=== PATIENT | female | born 1965 | race Asian ===

== ENCOUNTER 2025-01-08 02:28 | Day surgery (SDC) | payer OTHER, SELFPAY ==
--- NOTE | 2025-01-05 16:36 | SUR.PREOP ---
[facility] has started construction of its new state of the art ER which will open Spring 2026. With this, we anticipate parking may be a challenge for some our surgical patients and families. Parking spaces are limited but are available for all Surgical, obstetrics, and ER patients sharing this lot. If you arrive and find you are having a hard time finding a parking space, please note that we understand the challenges, please drive around the hospital and park near Hospital Entrance [address]. When you enter this entrance, you can ask a volunteer to direct or take you back to the surgical waiting area to check in. We appreciate everyone?s understanding of these expected challenges while we build for your future. Report to the Outpatient Waiting Room, entrance under the green pavilion located off [address], at time _10am__ on date _01/08/25__. Planned Procedure Time: __1200PM__.? Time changes happen often and if your time is changed the preop area will call you the afternoon before. - You and your visitor will be asked to self-screen and do not enter if you have any COVID symptoms. Please call surgeon if you need to reschedule. - A mask is optional within the hospital at this time. Patients may have clear liquids (water, carbonated beverages, clear teas, apple juice) until 3 hours prior to surgery with a maximum of 20 ounces. - No food from midnight until time of surgery and no smoking, or chewing tobacco (or any form of nicotine). No chewing gum, candy or mints. Take only the following medications with a SIP of water on the morning of surgery: ___Levothyroxine DO NOT STOP ANY OF YOUR OTHER PRESCRIPTION MEDICATIONS PRIOR TO SURGERY EXCEPT THE FOLLOWING Hold all vitamins and supplements for 3 days per anesthesiologist. Medications to discontinue per physician ____n/a Date to take last dose_Immediately Stop any further vitamins until surgery.__ Please no make-up, nail guinean, hairspray, perfume, deodorant, or body powder the day of surgery.? No jewelry (including any body piercings) or valuables the day of surgery, leave them at home.? Please take a shower or bath the night before, or the morning of, surgery with an antibacterial soap.? Wear comfortable, loose fitting clothing.? - Jewelry must be removed prior to entering the operating room.? Rings and piercings that are not removed may be cut off. - The hospital will not accept responsibility for valuables.? - Please leave all valuables, including medications, at home the day of surgery. If you are going home after surgery, a licensed winch driver must drive you home.? - NO public transportation without another adult if you receive anesthesia. - We recommend that an adult stay with you for 24 hours following discharge. - We also recommend that you do not drive, make important decision, drink alcoholic beverages, or take any drugs that were not prescribed by your health care provider for at least 24 hours after your discharge time. Follow any additional instructions given to you from your surgeon. Telephone instructions given to __Malathi___and asked if any additional questions and then verbalized understanding. Patient advised to call surgeon office or pre surgery nurse liaison [phone] if any additional questions.
[2025-01-05 16:41] VITALS: BMI 28.3
--- OUTSIDE RECORDS SUMMARY | 2025-01-08 02:31 | XMS_ITS | Data Portability ---
Author Organization [facility] Address [address] [place] [address] Care Team Providers Care Centrifugal Spinner Name Role Phone NASIR PALMA Primary Care Provider Assessment No assessment recorded. Plan of Treatment Reminders Order Date Submit Date Provider Last Modified By Organization Details Last Modified Time Details Appointments SURG Hysterosc opy 2024 12:00P Jerry QUINONES MD Not available Not available Not available SURG POST OP 2024 10:15A Jerry QUINONES MD Not available Not available Not available Lab hormone panel, serum or plasma [address] (Lab), [address], [place], [address], 12/30/2024 18:33:31 TSH, serum or plasma [address] (Lab), [address], [place], [address], 12/30/2024 18:33:31 CBC w/ auto diff [address] (Lab), [address] [place], [address], 12/30/2024 18:33:31 progester one, serum [address] (Lab), [address], [place], [address], 12/30/2024 18:33:31 prolactin , serum [address] (Lab), [address] [facility], [place], [address], 12/30/2024 18:33:31 testoster one free/test osterone total, ratio, serum [address] (Lab), [address] [facility], [place], [address], 12/30/2024 18:33:31 dhea-sulf ate, serum [address] (Lab), [address] [facility], [place], [address], 12/30/2024 18:33:31 CMP, serum or plasma [address] (Lab), [address] [facility], [place], [address], 12/30/2024 18:33:32 25-hydrox yvitamin D2 + 25-hydrox yvitamin D3, QN, serum or plasma [address] (Lab), [address] [facility], [place], [address], 12/30/2024 18:33:32 vitamin B12, serum [address] (Lab), [address] [facility], [place], [address], 12/30/2024 18:33:32 Referral None recorded. Procedures None recorded. Surgeries dilation and curettage with hysterosc opy (SURG) 2024 025 [id number] [facility], [address] [address], [place], [address], 01/01/2025 13:25:04 Imaging US, pelvis 2024 025 [email or web address] [place], [address], [place], [address], 12/25/2024 22:05:52 US, transvagi nal 2024 025 [email or web address], [address], [place], [address], 12/25/2024 22:05:52 Medication Orders None recorded. Patient TargetsNo targets recorded. Patient InstructionsNo instructions recorded. Reason for Referral None Reported. Results Created Date Observation Date Name Description Value Unit Range Abnormal Flag Note LastModifiedBy Organization Detail LastModifiedTime 12/24/1912/23/2024 CBC W/DIF F WBC 7.1 10'3/ uL 3.5-10 .5 Not Available [facility] (Lab) [address] [facility], [place], [address], 12/30/2024 18:44:31 12/24/19 25 12/23/2024 CBC W/DIF F RBC 4.60 10'6/ uL (based on docume nted legal sex) 3.80-5 .20 Not Available [facility] (Lab) [address], [place], [address], 12/30/2024 18:44:31 12/24/19 25 12/23/2024 CBC W/DIF F HGB 12.8 g/dL (based on docume nted legal sex) 11.6-1 5.4 Not Available [facility] (Lab) [address] , [place], [address], 12/30/2024 18:44:31 12/24/19 25 12/23/2024 CBC W/DIF F HCT 40.6 % (based on docume nted legal sex) 34.0-4 5.0 Not Available [facility] (Lab) [address] , [place], [address], 12/30/2024 18:44:31 12/24/19 25 12/23/2024 CBC W/DIF F MCV 88.3 fL 80.0-9 9.0 Not Available [facility] (Lab) [address] [facility], [place], [address], 12/30/2024 18:44:31 12/24/19 25 12/23/2024 CBC W/DIF F MCH 27.8 pg 27.0-3 4.0 Not Available [facility] (Lab) [address] [facility], [place], [address], 12/30/2024 18:44:31 12/24/19 25 12/23/2024 CBC W/DIF F MCHC 31.5 g/dL 32.0-3 5.5 low Not Available [facility] (Lab) [address], [place], [address], 12/30/2024 18:44:31 12/24/19 25 12/23/2024 CBC W/DIF F RDW 12.8 % 11.0-1 5.0 Not Available [facility] (Lab) [address] [facility], [place], [address], 12/30/2024 18:44:31 12/24/19 25 12/23/2024 CBC W/DIF F plt 279 10'3/ uL 150-40 0 Not Available [facility] (Lab) [address] [facility], [place], [address], 12/30/2024 18:44:31 12/24/19 25 12/23/2024 CBC W/DIF F MPV 12.2 fL 8.8-12 .1 high Not Available [facility] (Lab) [address] [facility], [place], [address], 12/30/2024 18:44:31 12/24/19 25 12/23/2024 CBC W/DIF F NRBC's 0.0 % 0.0 Not Available [facility] (Lab) [address] [facility], [place], [address], 12/30/2024 18:44:31 12/24/19 25 12/23/2024 CBC W/DIF F absolute NRBCs 0.0 10'3/ uL no refere nce range establ ished Not Available [facility] (Lab) [address] [facility], [place], [address], 12/30/2024 18:44:31 12/24/19 25 12/23/2024 CBC W/DIF F neutrophils 53.2 % 34.0-7 3.0 Not Available [facility] (Lab) [address] [facility], [place], [address], 12/30/2024 18:44:31 12/24/19 25 12/23/2024 CBC W/DIF F lymphocytes 36.6 % 15.0-5 0.0 Not Available [facility] (Lab) [address] [facility], [place], [address], 12/30/2024 18:44:31 12/24/19 25 12/23/2024 CBC W/DIF F monocytes 6.1 % 1.0-15 .0 Not Available [facility] (Lab) [address] [facility], [place], [address], 12/30/2024 18:44:31 12/24/19 25 12/23/2024 CBC W/DIF F eosinophils 3.2 % 0.0-8. 0 Not Available [facility] (Lab) [address] [facility], [place], [address], 12/30/2024 18:44:31 12/24/19 25 12/23/2024 CBC W/DIF F basophils 0.8 % 0.0-2. 0 Not Available [facility] (Lab) [address] [facility], [place], [address], 12/30/2024 18:44:31 12/24/19 25 12/23/2024 CBC W/DIF F immature granulocytes 0.1 % no define d refere nce range Immat ure Granu locyt es (IG) repre sents autom ated enume ratio n of Metam yeloc ytes, Myelo cytes and Promy elocy wyatt when IG is < 5%. Blast s are not inclu ded in IG and repor gama separ ately if prese nt. Not Available [facility] (Lab) [address] [facility], [place], [address], 12/30/2024 18:44:31 12/24/19 25 12/23/2024 CBC W/DIF F absolute neutrophils 3.8 10'3/ uL 1.5-8. 0 Not Available [facility] (Lab) [address] [facility], [place], [address], 12/30/2024 18:44:31 12/24/19 25 12/23/2024 CBC W/DIF F absolute lymphocytes 2.6 10'3/ uL 1.0-4. 0 Not Available [facility] (Lab) [address] [facility], [place], [address], 12/30/2024 18:44:31 12/24/19 25 12/23/2024 CBC W/DIF F absolute monocytes 0.4 10'3/ uL 0.2-1. 0 Not Available [facility] (Lab) [address] [facility], [place], [address], 12/30/2024 18:44:31 12/24/19 25 12/23/2024 CBC W/DIF F absolute eosinophils 0.2 10'3/ uL 0.0-0. 6 Not Available [facility] (Lab) [address] [facility], [place], [address], 12/30/2024 18:44:31 12/24/19 25 12/23/2024 CBC W/DIF F absolute basophils 0.1 10'3/ uL 0.0-0. 3 Not Available [facility] (Lab) [address] [facility], [place], [address], 12/30/2024 18:44:31 12/24/19 25 12/23/2024 CBC W/DIF F absolute immature granulocytes 0.0 10'3/ uL 0.00-0 .10 Refer ence range s for nonbi nary/ inter sex or unspe cifie d gende r patie nts have not been estab lishe d. Plevera e refer to the marthao wing table for range s estab lishe d for cisge nder patie nts and evalu ate in the clini alla nick xt of the indiv idual patie nt: https ://la bhand book. nm.or g/gen derx Not Available [facility] (Lab) [address], [place], [address], 12/30/2024 18:44:31 12/24/19 25 12/23/2024 HEMOG LOBIN A1C hemoglobin A1C 6.4 % 4.0-5. 6 high The Ameri can [employer] wyatt [employer] iatio n recom mends that a prima ry goal of thera py shoul d be a HBA1C of < 7% and that physi cians shoul d reeva luate the treat ment regim en in patie nts with HBA1C value s consi stent ly > 8%. <5.7% Akilah l 5.7 - 6.4% Incre ased risk for diabe wyatt >=6.5 % Diagn ostic of diabe wyatt <7.0% Goal of thera py >8.0% Actio n sugge sted Not Available [facility] (Lab) [address], [place], [address], 12/30/2024 18:44:32 12/24/19 25 12/23/2024 DHEA SULFA TE DHEA-sulfate 103 ug/dL Femal e Range s Age(y ) Range (ug/d L) 10-15 34-28 0 15-20 65-36 8 20-25 148-4 07 25-35 99-34 0 35-45 61-33 7 45-55 35-25 6 55-65 19-20 5 65-75 9-246 > 75 12-15 4 Not Available [facility] (Lab) [address], [place], [address], 12/30/2024 18:44:32 12/24/19 25 12/23/2024 TSH, REFLE X FREE T4 TSH 1.34 uIU/m L 0.30-5 .33 Not Available [facility] (Lab) [address] [facility], [place], [address], 12/30/2024 18:44:32 12/24/19 25 12/23/2024 VITAM IN B12 vitamin B12 233 pg/mL 180-91 4 Akilah l Range : 180-9 14 pg/mL . Indet ermin ate Range : 145-1 80 pg/mL . Defic ient Range : <=145 pg/mL . Not Available [facility] (Lab) [address] [facility], [place], [address], 12/30/2024 18:44:33 12/24/19 25 12/23/2024 VITAM IN D, 25-OH (TOTA L D2/D3 ) vitamin D, 25-hydroxy, total 19.6 NG/mL 30.0-1 00.0 low Sugge stive of Defic iency : <20 ng/mL Sugge stive of Insuf ficie ncy: 20-29 ng/mL Sugge stive of Suffi cienc y: 30-10 0 ng/mL Sugge stive of Toxic ity: >150 ng/mL Not Available [facility] (Lab) [address] [facility], [place], [address], 12/30/2024 18:44:33 12/24/19 25 12/23/2024 CMP(C OMPRE HENSI VE METAB OLIC PANEL ) sodium 139 mmol/ L 133-14 6 Not Available [facility] (Lab) [address] [facility], [place], [address], 12/30/2024 18:44:33 12/24/19 25 12/23/2024 CMP(C OMPRE HENSI VE METAB OLIC PANEL ) potassium 4.3 mmol/ L 3.5-5. 1 Not Available [facility] (Lab) [address] [place], [address], 12/30/2024 18:44:33 12/24/19 25 12/23/2024 CMP(C OMPRE HENSI VE METAB OLIC PANEL ) chloride 103 mmol/ L 98-107 Not Available [facility] (Lab) [address] [facility], [place], [address], 12/30/2024 18:44:33 12/24/19 25 12/23/2024 CMP(C OMPRE HENSI VE METAB OLIC PANEL ) carbon dioxide 28 mmol/ L 21-31 Not Available [facility] (Lab) [address] [facility], [place], [address], 12/30/2024 18:44:33 12/24/19 25 12/23/2024 CMP(C OMPRE HENSI VE METAB OLIC PANEL ) anion gap 8 mmol/ L 4-13 Not Available [facility] (Lab) [address] [facility], [place], [address], 12/30/2024 18:44:33 12/24/19 25 12/23/2024 CMP(C OMPRE HENSI VE METAB OLIC PANEL ) blood urea nitrogen 18 mg/dL 7-25 Not Available [facility] (Lab) [address] [facility], [place], [address], 12/30/2024 18:44:33 12/24/19 25 12/23/2024 CMP(C OMPRE HENSI VE METAB OLIC PANEL ) creatinine 0.80 mg/dL 0.60-1 .30 Not Available [facility] (Lab) [address] [facility], [place], [address], 12/30/2024 18:44:33 12/24/19 25 12/23/2024 CMP(C OMPRE HENSI VE METAB OLIC PANEL ) egfrcr (CKD-epi 2020) 85 mL/mi n/1.7 3_m2 >=60 Not Available [facility] (Lab) [address] [facility], [place], [address], 12/30/2024 18:44:33 12/24/19 25 12/23/2024 CMP(C OMPRE HENSI VE METAB OLIC PANEL ) calcium 9.8 mg/dL 8.3-10 .5 Not Available [facility] (Lab) [address] [facility], [place], [address], 12/30/2024 18:44:33 12/24/19 25 12/23/2024 CMP(C OMPRE HENSI VE METAB OLIC PANEL ) glucose 103 mg/dL 70-100 high Not Available [facility] (Lab) [address] [facility], [place], [address], 12/30/2024 18:44:33 12/24/19 25 12/23/2024 CMP(C OMPRE HENSI VE METAB OLIC PANEL ) protein, total 7.3 g/dL 6.4-8. 3 Not Available [facility] (Lab) [address] [facility], [place], [address], 12/30/2024 18:44:33 12/24/19 25 12/23/2024 CMP(C OMPRE HENSI VE METAB OLIC PANEL ) albumin 4.6 g/dL 3.5-5. 0 Not Available [facility] (Lab) [address] [facility], [place], [address], 12/30/2024 18:44:33 12/24/19 25 12/23/2024 CMP(C OMPRE HENSI VE METAB OLIC PANEL ) ALT 15 units /L 9-43 Not Available [facility] (Lab) [address] [place], [address], 12/30/2024 18:44:33 12/24/19 25 12/23/2024 CMP(C OMPRE HENSI VE METAB OLIC PANEL ) alkaline phosphatase 99 units /L 34-104 Not Available [facility] (Lab) [address] [place], [address], 12/30/2024 18:44:33 12/24/19 25 12/23/2024 CMP(C OMPRE HENSI VE METAB OLIC PANEL ) AST 12 units /L 13-39 low Not Available [facility] (Lab) [address] [place], [address], 12/30/2024 18:44:33 12/24/19 25 12/23/2024 CMP(C OMPRE HENSI VE METAB OLIC PANEL ) bilirubin, total 0.8 mg/dL 0.2-1. 2 Not Available [facility] (Lab) [address] [facility], [place], [address], 12/30/2024 18:44:33 12/24/19 25 12/23/2024 PROLA CTIN prolactin, total 5.79 NG/mL 4.79-2 3.30 This assay was perfo rmed using [employer] ratio n reage nts and test kits. Value s obtai tonya with other assay metho ds or kits canno t be used inter waters eay . Not Available [facility] (Lab) [address] [facility], [place], [address], 12/30/2024 18:44:33 12/24/19 25 12/23/2024 PROGE STERO NE progesterone 0.06 NG/mL This assay was perfo rmed using [employer] ratio n reage nts and test kits. Value s obtai tonya with other assay metho ds or kits canno t be used inter waters eably . Femal e Proge stero ne Range s: Folli cular phase 0.06- 0.89 ng/mL Ovula tion phase 0.12- 12.00 ng/mL Lutea l phase 1.83- 23.90 ng/mL Postm enopa usal <0.05 -0.13 ng/mL Healt hy Pregn ant Women 1st Trime ster 11.0- 44.30 2nd Trime ster 25.40 -83.3 0 3rd Trime ster 58.70 -214. 00 Not Available [facility] (Lab) [address] [facility], [place], [address], 12/30/2024 18:44:33 12/24/19 25 12/23/2024 FSH, LH, ESTRA DIOL estradiol 13.7 pg/mL This assay was perfo rmed using [employer] ratio n reage nts and test kits. Value s obtai tonya with other assay metho ds or kits canno t be used inter [facility] . Femal e Estra diol Range s: Folli cular phase 12.4- 233 pg/mL Ovula tion phase 41.0- 398 pg/mL Lutea l phase 22.3- 341 pg/mL Postm enopa usal <5-13 8 pg/mL Healt hy Pregn ant Women 1st Trime ster 154-3 243 pg/mL 2nd Trime ster 1561- 23149 pg/mL 3rd Trime ster 8525- >3000 0 pg/mL Not Available [facility] (Lab) [address] [place], [address], 12/30/2024 18:44:34 12/24/19 25 12/23/2024 FSH, LH, ESTRA DIOL FSH 63.4 mIU/m L This assay was perfo rmed using [employer] ratio n reage nts and test kits. Value s obtai tonya with other assay metho ds or kits canno t be used inter [facility] . Femal es Folli cular : 3.5-1 2.5 mIU/m L Ovula tion: 4.7-2 1.5 mIU/m L Lutea l: 1.7-7 .7 mIU/m L Postm enopa use: 25.8- 134.8 mIU/m L Not Available [facility] (Lab) [address] [place], [address], 12/30/2024 18:44:34 12/24/19 25 12/23/2024 FSH, LH, ESTRA DIOL LH 25.6 mIU/m L This assay was perfo rmed using [employer] ratio n reage nts and test kits. Value s obtai tonya with other assay metho ds or kits canno t be used inter [facility] . Femal es Mid-F ollic ular: 2.4-1 2.6 mIU/m L Mid-C ycle: 14.0- 95.6 mIU/m L Mid-L uteal : 1.0-1 1.4 mIU/m L Postm enopa use: 7.7-5 8.5 mIU/m L Not Available [facility] (Lab) [address] [facility], [place], [address], 12/30/2024 18:44:34 12/24/19 25 12/23/2024 TESTO STERO NE, FREE( DIALY SIS) AND TOTAL (LC/M S/MS) testosterone , total 12 NG/dL 2-45 For addit ional infor radha thomas e refer to http: //[facility] kiara samuels.que stdia gnost ics.c om/fa q/ Total Testo stero neLCM SMSFA Q165 (This link is being provi ded for infor nanda quick/ educa aryan l purpo ses only. ) This test was devel oped and its saira tical perfo rmanc e michela cteri stics have been deter mined by [employer] allyson haley [employer] [place], [place]. It has not been clear ed or appro ambrose by the U.S. Food and Drug Admin istra tion. This assay has been valid ated pursu ant to the CLIA regul ation s and is used for clini alla purpo ses. Not Available [facility] (Lab) [address] [place], [address], 12/30/2024 18:44:34 12/24/19 25 12/23/2024 TESTO STERO NE, FREE( DIALY SIS) AND TOTAL (LC/M S/MS) testosterone , free 1.6 pg/mL 0.1-6. 4 This test was devel oped and its saira tical perfo rmanc e michela cteri stics have been deter mined by [employer] osthernandez haley [employer] [place], [place]. It has not been clear ed or appro ambrose by the U.S. Food and Drug Admin istra tion. This assay has been valid ated pursu ant to the CLIA regul ation s and is used for clini alla purpo ses. Perfo rming Organ izati on Infor nanda n: Site ID: [id number] Name: Adam Copeland tutpatrice Addre ss: [id number] [place], [place] Direc tor: Brynn Monreal MD PhD Not Available [facility] (Lab) [address], [place], [address], 12/30/2024 18:44:34 12/26/1912/25/2024 US, pelvi s No observ ation record ed. [email or web address], [place], [address], 01/01/2025 16:36:50 12/26/1912/25/2024 US, pelvi s No observ ation record ed. [facility] [address], [place], [address], 12/25/2024 15:25:20 12/26/1912/25/2024 US, trans vagin al No observ ation record ed. [facility] [address], [place], [address], 12/25/2024 15:25:29 Result Notes None recorded. Procedures Surgical History Date Name Laterality Status Provider Name and Address Organization Details Recorded Time Colonoscopy completed [facility] 12/23/2024 11:54:26 Imaging Results None recorded. Procedure Notes None recorded. Medical Equipment None Reported. Allergies No known drug allergies Medications Name Sig Start Date Stop Date Status Note LastModified by Organization Details LastModified Time famotidine 40 mg tablet Take 1 tablet every day by oral route. active Not Available Not Available No t Available levothyroxine 75 mcg tablet Take 1 tablet every day by oral route. active Not Available Not Available No t Available levothyroxine 12/23 completed Not Available Not Available Not Available famotidine 12/23 completed Not Available Not Available Not Available 12 Hour Antihistamine active Not Available Not Availabl e Not Available cholecalcifer ol (vitamin D3) 1,250 mcg (50,000 unit) capsule Take one tablet by mouth once weekly for 8 weeks 2024 active Not Available Not Available Not Tete gutiérrez Vitalsudha Date Recorded Body height Body mass index (BMI) Body weight Systolic And Diastolic Provider Name and Address Organization Details Last Updated DateTime 12/23/2024 163.83 cm 27.9 kg/m2 32513.46 g 139/84 mm[Hg] Amy Anthony [facility] 12/23/2024 11:45:28 Date Recorded Body height Body mass index (BMI) Body weight Systolic And Diastolic Provider Name and Address Organization Details Last Updated DateTime 01/01/2025 163.83 cm 28.1 kg/m2 02443.33 g 135/80 mm[Hg] Stephanie Benson [facility] 01/01/2025 11:00:39 Social History Question Answer Notes LastModified by Organizat ion Details LastModified Time Are You Blind Or Do You Have Difficulty Seeing? No [email or web address] Information not available 12/23/2024 What Is Your Level Of Caffeine Consumption? Moderate Information not available 12/23/2024 How Much Tobacco Do You Chew? None Information not available 12/23/2024 In The 14 Days Before Symptom Onset, Have You Had Close Contact With A Laboratory-confirme d COVID-19 While That Case Was Ill? No [email or web address] Information n ot available 12/23/2024 In The 14 Days Before Symptom Onset, Have You Had Close Contact With A Person Who Is Under Investigation For COVID-19 While That Person Was Ill? No [email or web address] Information not available 12/23/2024 Have You Been To An Area Known To Be High Risk For COVID-19? No [email or web address] Information not available 12/23/2024 Are You Deaf Or Do You Have Serious Difficulty Hearing? No [email or web address] Information not available 12/23/2024 What Type Of Diet Are You Following? DIABETIC [email or web address] Information n ot available 12/23/2024 What Is The Highest Grade Or Level Of School You Have Completed Or The Highest Degree You Have Received? [id number] [email or web address] Information not available 12/23/2024 Are There Any Guns Present In Your Home? No [email or web address] Information not available 12/23/2024 Do You Use Protection During Sex? No Information not available 12/23/2024 Do You Use Your Seat Belt Or Car Seat Routinely? Yes [email or web address] Information not available 12/23/2024 Are You Sexually Active? Yes [email or web address] Information not available 12/23/2024 Do You Have Smoke And Carbon Monoxide Detectors In Your Home? Yes [email or web address] Information not available 12/23/2024 How Much Tobacco Do You Smoke? No [email or web address] Information not available 12/23/2024 Do You Use Sunscreen Routinely? Yes [email or web address] Information not available 12/23/2024 Have You Used IV Drugs? No [email or web address] Information not available 12/23/2024 Do You Have Difficulty Walking Or Climbing Stairs? No [email or web address] Information not available 12/23/2024 Sex: Unknown Functional Status Question Answer Note LastModified by Organizat ion Details LastModified Time Do you use any illicit or recreational drugs? No [email or web address] Information not available 12/23/2024 What is your level of alcohol consumption? None [email or web address] Information not available 12/23/2024 Are you currently employed? Yes [email or web address] Information not available 12/23/2024 Are you able to walk independently without assistance or assistive devices? YESWOREST [email or web address] Information not available 12/23/2024 Are you able to care for yourself independently? 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 No Information not available 12/23/2024 What is your exercise level? None [email or web address] Information not available 12/23/2024 Mental Status Question Answer Note LastModified by Organization D etails LastModified Time Do you feel stressed (tense, restless, nervous, or anxious, or unable to sleep at night)? [id number] Information not available 12/23/2024 Family History Relationship Description Onset Age of this Age Resolved Age Notes LastModified by Organization Details LastModified Time Mother Diabetes mellitus [email or web address] Not available 2024 11:37:06 Father Diabetes mellitus [email or web address] Not available 2024 11:37:06 Medical History Condition Response Allergies (Food, seasonal, environmental ) N Other N Drug/Latex Allergies/Reactions N Blood Transfusion N Breast Cancer N Dermatologic Disorders N Lung Disease N Defects or Inherited Disease N Breast Problem N Gestational Diabetes N Hematologic disorders N Anesthesia Complications N History of STI N Deep Vein Thrombosis N Polycystic ovary syndrome N Anxiety Disorder N Autoimmune disease N Arthritis N Polyps N Infertility N Acid Reflux (GERD) Y History of abnormal pap N Cancer N Varicosities N Stroke N Neurologic/Epilepsy N Endometriosis N High Cholesterol N Fibromyalgia N Headaches N Kidney Disease N Heart Problems N Thyroid Problems N Kidney or Bladder Problems N GI Problems N Eating Disorder N Anemia N Art (IVF or FET) N Psychiatric Illness N Ovarian Cancer N Diabetes N Pulmonary (TB, Asthma) N Hepatitis/Liver Disease N No Past Medical History N Eczema N Urinary Tract Infection N Abuse/Domestic Violence N Asthma N Trauma/Violence N Depression/ depression N Heart Disease N Pre-Eclampsia N Hypertension N Osteoporosis N Thrombophilias N Gynecological History Statement/Question Response Flow Light Date of Last Mammogram Date of LMP 11/29/2024 Was last menstrual period normal N STIs/STDs N Duration of Flow (days) 25 Current Control Method None Age at First Child 24 Are cycles usually normal N Date of Last Colonoscopy Most Recent Bone Density Sexually Active? Y Menses Monthly N Date of DEXA bone scan Age of first menstrual cycle 13 Date of Last Pap Smear Sexual Problems? Y LMP Definite Obstetrics History GPAL:G 4 P 3 0 1 3 Type Value Full Term 3 Spontaneous 1 Living 3 Total 4 Past Encounters Encounter ID Performer Location Encounter Start Date Encounter Closed Date Diagnosis/Indication Diagnosis SNOMED-CT Code Diagnosis ICD10 Code Diagnosis IMO Codes Diagnosis Note [id number] JARED POWELL, SERA [place] [address] [address] 12/23/2024 11:33:19 12/23/2024 13:36:56 Abnormal uterine bleeding [id number] 9100 N93.9 [id number] The patient and I discussed the various causes of abnormal uterine bleeding, including polyps, fibroids, hyperplasi a, atypia, anovulatio n, hormonal changes, etc.We reviewed the typical evaluation with labs, pelvic US and possible endometria l biopsy.Mayuri efly discussed the options available for treatment (depending on the results of evaluation ). EMB from 07/03/24 at [facility] - benignPelv ic ultrasound and labs ordered with subsequent office f/u scheduled Fatigue [id number] R53.83 [id number] Donovan Quinones MD [place] [address] [address] 12/25/2024 13:51:16 12/25/2024 14:50:03 Abnormal uterine bleeding [id number] 9100 N93.9 [id number] Donovan Quinones MD [place] [address] [address] 01/01/2025 10:52:40 01/01/2025 12:18:57 Postmenopausal bleeding [id number] N95.0 [id number] this patient is 59-year-ol d female with postmenopa usal bleeding and thickened endometriu m. We have agreed to perform hysterosco py D&C. She understand s risks, benefits, and alternativ es. She has completed the informed consent process and is ready to proceed Health Concerns Section Related Observation LastModified by Organization Detai ls LastModified Time None Recorded Concern Status LastModified by Organization Details LastModified Time None Recorded Advance Directives Directive None Recorded Payers Insurance Date Sequence Insurance Name Policy Number Policy Wang Covered Member ID Wang Member ID Guarantor Name 01/07/2025 1 [employer] (POS II) [id number] Malathi Lay [id number] Malathi Lay Notes Date Note Type Note Provider Name and Address Organization Details Recorded Time 12/23/2024 text/html 59 y/o artem-menopausal female presents with c/o irregular bleeding, bloating, abdominal pain, and fatigue.Patient states that over the past 3 years, she has had infrequent menstruation, and has went 11 months as her longest without menstruation. Patient states that she has had more intermittent light spotting this year. Patient states that she was evaluated in June at [facility] OBGYN clinic and had endometrial biopsy completed. Patient states that she never completed the pelvic ultrasound that was ordered.Patient states that her bleeding started again on 11/29 and has lasted 15 days with light flow. Patient reports cramping and bloating. Denies vaginal sx or urinary sx. Patient reports hx of constipation. JARED POWELL NP [address], [place], [address], [facility] 12/23/2024 13:36:24 01/01/2025 text/html this patient is a 59-year-old female with a thickened endometrium and postmenopausal bleeding. She has some vascularity of the thickened endometrium. We discussed the findings on ultrasound. We discussed treatment options. We discussed ruling out endometrial cancer. We agreed to move forward with hysteroscopy D and C. The patient understands the procedure. The procedure was described to the patient in great detail. the patient also understands the risks. The risks were also explained in detail. She understands that injuries May occur during surgery. She understands these injuries can result in hospitalization, more surgery, and severe illness. She understands there is risk of hemorrhage and infection. Donovan Quinones MD [address], [place], [address], [facility] 01/01/2025 12:18:31 OBGyn Episode Ob Episode Information Episode Created Date Number of Fetuses Patient Bloodtype Patient rh Status Prepregnancy Weight lbs Domestic Partner Domestic Partner Phone Father Name Network Strategist Status 12/24/19 25 1 CLOSED Fetus Data First Name Last Name Admitted to NICU Weight (g) Sex Living Outcome Pediatric Complications Fetus ID Race Codes Race Delivery Type 3628.73 6 F Full Term [id number] Vaginal Delivery Alejandro Calculation Initial Alejandro Date Initial Exam Date Initial Exam Provider Initial Ultrasound Date Last Menstrual Period Date Ultra Sound Weeks Gestation 0 Eighteen To Twenty Week Alejandro Update Ultra Sound Date Fundal Height At Umbil Quickening Date Ultra Sound Latest Weeks Gestation Final Alejandro Confirmed By Final Alejandro Confirmed Date Final Alejandro Date Ultra Sound Latest Days Gestation 0 0 Menstrual History Last Menstrual Date Menses Monthly On Bcp Conception Prior Menses Frequency Hcg Plus Date Menarche Onset Age Delivery Information Delivery Date Delivery Type Labor Anesthesia Weeks Gestation Incision Type Labor Labor Length Hrs Delivered By Post Complications Tubal Sterilization Discharge Date Comments 3 40 Discharge Information Feeding Method Contraceptive Method Maternal HG B and HCT Levels Ob Episode Information Episode Created Date Number of Fetuses Patient Bloodtype Patient rh Status Prepregnancy Weight lbs Domestic Partner Domestic Partner Phone Father Name Network Strategist Status 12/24/19 1 CLOSED Fetus Data First Name Last Name Admitted to NICU Weight (g) Sex Living Outcome Pediatric Complications Fetus ID Race Codes Race Delivery Type 3628.73 6 M Full Term [id number] Vaginal Delivery Alejandro Calculation Initial Alejandro Date Initial Exam Date Initial Exam Provider Initial Ultrasound Date Last Menstrual Period Date Ultra Sound Weeks Gestation 0 Eighteen To Twenty Week Alejandro Update Ultra Sound Date Fundal Height At Umbil Quickening Date Ultra Sound Latest Weeks Gestation Final Alejandro Confirmed By Final Alejandro Confirmed Date Final Alejandro Date Ultra Sound Latest Days Gestation 0 0 Menstrual History Last Menstrual Date Menses Monthly On Bcp Conception Prior Menses Frequency Hcg Plus Date Menarche Onset Age Delivery Information Delivery Date Delivery Type Labor Anesthesia Weeks Gestation Incision Type Labor Labor Length Hrs Delivered By Post Complications Tubal Sterilization Discharge Date Comments 2 40 Discharge Information Feeding Method Contraceptive Method Maternal HG B and HCT Levels Ob Episode Information Episode Created Date Number of Fetuses Patient Bloodtype Patient rh Status Prepregnancy Weight lbs Domestic Partner Domestic Partner Phone Father Name Network Strategist Status 12/24/19 1 CLOSED Fetus Data First Name Last Name Admitted to NICU Weight (g) Sex Living Outcome Pediatric Complications Fetus ID Race Codes Race Delivery Type 3175.14 4 F Full Term [id number] Vaginal Delivery Alejandro Calculation Initial Alejandro Date Initial Exam Date Initial Exam Provider Initial Ultrasound Date Last Menstrual Period Date Ultra Sound Weeks Gestation 0 Eighteen To Twenty Week Alejandro Update Ultra Sound Date Fundal Height At Umbil Quickening Date Ultra Sound Latest Weeks Gestation Final Alejandro Confirmed By Final Alejandro Confirmed Date Final Alejandro Date Ultra Sound Latest Days Gestation 0 0 Menstrual History Last Menstrual Date Menses Monthly On Bcp Conception Prior Menses Frequency Hcg Plus Date Menarche Onset Age Delivery Information Delivery Date Delivery Type Labor Anesthesia Weeks Gestation Incision Type Labor Labor Length Hrs Delivered By Post Complications Tubal Sterilization Discharge Date Comments 4 40 Discharge Information Feeding Method Contraceptive Method Maternal HG B and HCT Levels Ob Episode Information Episode Created Date Number of Fetuses Patient Bloodtype Patient rh Status Prepregnancy Weight lbs Domestic Partner Domestic Partner Phone Father Name Network Strategist Status 12/24/19 1 CLOSED Fetus Data First Name Last Name Admitted to NICU Weight (g) Sex Living Outcome Pediatric Complications Fetus ID Race Codes Race Delivery Type , Spontane ous [id number] Alejandro Calculation Initial Alejandro Date Initial Exam Date Initial Exam Provider Initial Ultrasound Date Last Menstrual Period Date Ultra Sound Weeks Gestation 0 Eighteen To Twenty Week Alejandro Update Ultra Sound Date Fundal Height At Umbil Quickening Date Ultra Sound Latest Weeks Gestation Final Alejandro Confirmed By Final Alejandro Confirmed Date Final Alejandro Date Ultra Sound Latest Days Gestation 0 0 Menstrual History Last Menstrual Date Menses Monthly On Bcp Conception Prior Menses Frequency Hcg Plus Date Menarche Onset Age Delivery Information Delivery Date Delivery Type Labor Anesthesia Weeks Gestation Incision Type Labor Labor Length Hrs Delivered By Post Complications Tubal Sterilization Discharge Date Comments 2 Discharge Information Feeding Method Contraceptive Method Maternal HG B and HCT Levels
--- OUTSIDE RECORDS SUMMARY | 2025-01-08 02:31 | XMS_ITS | Clinical Summary ---
Author Organization [facility] Address [address] [place] [address] Care Team Providers Care Rippler Name Role Phone Radha Su [employer]AL INSTALLER Primary Care Provider [phone] Allergies Active Allergy Reactions Criticality Noted Date Comments Gluten Rash Medium 05/01/2017 Wheat Rash,Shortness of breath,Swelling High Medications ibuprofen (ADVIL,MOTRIN) 600 mg tabletIndicatio ns:Pain Take 1 tablet (600 mg total) by mouth every 6 (six) hours as needed for pain 60 tablet 07/04/19 25 Active famotidine (PEPCID) 40 mg tabletIndicatio ns:Gastroesopha geal reflux disease, unspecified whether esophagitis present Take 1 tablet (40 mg total) by mouth daily 90 tablet 1 07/30/19 25 Active cetirizine (ZyrTEC) 10 mg chewable tabletIndicatio ns:Postmenopaus al bleeding Take 1 tablet (10 mg total) by mouth daily as needed for allergies 90 tablet 1 09/25/19 25 Active levothyroxine (SYNTHROID) 75 mcg tabletIndicatio ns:Postmenopaus al bleeding TAKE 1 TABLET BY MOUTH EVERY MORNING BEFORE BREAKFAST 90 tablet 1 12/27/19 25 Active levothyroxine (SYNTHROID) 75 mcg tabletIndicatio ns:Postmenopaus al bleeding Take 1 tablet (75 mcg total) by mouth commonwealth attorney before breakfast 90 tablet 1 09/25/19 25 025 Discontinued Active Problems Problem Noted Date Diagnosed Date Screening for cholesterol level 07/30/2024 Screening for diabetes mellitus 07/30/2024 Fatigue 07/30/2024 Overview (07/30/2024): -for the past three months her entire body is in pain -she did start working longer hours on her feet -reports pain in her muscles, not joint pain -right arm and shoulder is worse than left, improves with wearing a brace -pain in neck and low back -woke up in pain this morning but improved with a hot shower -might take Ibuprofen -feels tired during the day -naps for three hours in the afternoon -low energy so she started taking vit d and b Update labs, start PT Postmenopausal bleeding 07/03/2024 Overview (07/30/2024): -follows with chain saw operator -scheduled for US later this month Right shoulder pain 07/03/2024 Overview (07/03/2024): 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 Persistent despite rest, stretching, topical agents Plan - referral to physical therapy placed Gastroesophageal reflux disease 07/30/2021 Overview (07/30/2024): -well controlled with pepcid -reflux is worse when she is angry or anxious Hypothyroidism 03/19/2004 Overview (07/30/2024): -levothyroxine 75mcg daily Update TSH. Medical History Medical History Date Comments Thyroid disease 2003 GERD (gastroesophageal reflux disease) Family History Medical History Relation Name Comments Diabetes Father Diabetes Mother Relation Name Status Comments Father Alive Mother Alive Social History Tobacco Use Types Packs/Day Years Used Date Smoking Tobacco: Never Passive Smoke Exposure: Never Smokeless Tobacco: Never Tobacco Cessation:Counseling Given: Not Answered Hunger Vital Sign Answer Date Recorded Within the past 12 months, y ou worried that your food would run out before you got the money to buy more. Never true 07/04/19 25 Within the past 12 months, t he food you bought just didn't last and you didn't have money to get more. Never true 07/03/2024 Comments No Sex and Gender Information Value Date Recorded Sex Assigned at Not on file Legal Sex Female 11:29 AM CDT Gender Identity Female 06/30/2024 7:34 PM CDT Sexual Orientation Not on file Obstetrics History Para Term AB IAB SAB Ectopic Multiple Livin g Live Births 4 3 3 0 1 3 Date Outcome GA Total Labor Labor/2nd/3rd Weight Sex Type Anes PTL Mounika A1 A5 Name Clin Term Term Term AB Comments Term x3, 1 miscarriage Last Filed Vital Signs Vital Sign Reading Time Taken Comments Blood Pressure 122/77 07/29/2024 10:24 AM CDT Pulse 80 07/29/2024 10:24 AM CDT Temperature 36.8 C (98.2 F) 07/29/2024 10:24 AM CDT Respiratory Rate - - Oxygen Saturation 98% 07/29/2024 10:24 AM CDT Inhaled Oxygen Concentration - - Weight 77.1 kg (170 lb) 07/29/2024 10:24 AM CDT Height 162.6 cm (5' 4) 07/29/2024 10:24 AM CDT Body Mass Index 29.18 07/29/2024 10:24 AM CDT Plan of Treatment Health Maintenance Due Date Last Done Comments Breast Cancer Screening-Mammogram 1965 Cervical Cancer Screening 1965 Colon Cancer Screening-Colonoscopy 1965 Depression Screening 1965 Hepatitis C Screening 1965 DTaP/Tdap/Td Vaccine (1 - Tdap) 1976 Hepatitis B Screening 12/20/1983 Regular Well Visit/Exam 18-64 12/20/1983 Zoster Vaccine (2 of 2) 10/23/2023 08/28/2023 Covid-19 Vaccine (4 - 2024-2 6 season) 2024 04/05/2021, 08/12/2020, 06/17/2020 Influenza Vaccine (#1) 2024 , 01/07/2020 Pneumococcal vaccine <65 Aged Out No longer eligible based on patient's age to complete this topic Insurance [facility] Care Teams Rippler Relationship Specialty Start Date End Date Radha Su NP [address] [facility] [address] [place] [address] PCP - General Nurse Practitioner 07/29/24
--- NOTE | 2025-01-08 10:55 | WPDANESEPPF ---
Anes - Initial Pre Proc Eval Procedure: Operation Date: 01/08/25 12:00 Proposed Procedures p Hysteroscopy Dilation and Curettage - Donovan Quinones MD Date/Time: 01/08/25 10:55 Surgeon: Donovan Quinones MD Pre Op Diagnosis: post menopausal bleeding Patient Data Age: 59 Gender: F Height: 1.63 m Weight: 75 kg Allergies Allergy/AdvReac Type Severity Reaction Status Date / Time No Known Allergies Allergy Verified 01/05/25 16:38 Home Medications ?Medication ?Instructions ?Recorded ?Confirmed ?Type cetirizine 10 mg tablet (24Hour 10 mg PO DAILY PRN allergies 01/05/25 01/05/25 History Allergy) famotidine 40 mg tablet 40 mg PO DAILY 01/05/25 01/05/25 History levothyroxine 75 mcg tablet 75 mcg PO DAILY 01/05/25 01/05/25 History magnesium 200 mg tablet 200 mg PO DAILY 01/05/25 01/05/25 History multivitamin (Daily Multi-Vitamin 1 tablet PO DAILY 01/05/25 01/05/25 History tablet) Patient hx anesthesia problems: none Family hx anesthesia problems: none Results Review: All pre-operative results and documents have been reviewed as part of the pre-operative evaluation. PMFSH Past Medical History Medical History (Updated 01/08/25 @ 10:55 by Jonathan Woods MD) Hypothyroidism Overweight Social History Social History Smoking status: Never smoker Living arrangements: with family Anes - Eval Final PreProcedure Day of Procedure 01/08/25 10:55 Patient weight: overweight Heart: regular rate and rhythm Lungs: clear to auscultation Airway: Mallampati scale class II Neurological: alert and oriented Last oral intake: >/= 8 hours ASA classification: II Emergent: no Anesthetic plan: proceed Anesthesia type and monitoring: general GIVS and standard monitoring Results Review: All pre-operative results and documents have been reviewed as part of the pre-operative evaluation. Informed Consent: The patient's anesthetic plan and its attendant risks and benefits were discussed with the patient/family/POA. Questions were solicited and answers provided to the satisfaction of the patient/family/POA.
[2025-01-08 11:02] VITALS: BP 148/87; PULSE 68; TEMP 36.3; O2SAT 99; BMI 28.8
[2025-01-08] MEDS: ACETAMINOPHEN 500 MG TABLET 1000 MG PO (11:10)
[2025-01-08] MEDS: LACTATED RINGERS 1,000 ML 30 ML IV CONT (11:10)
[2025-01-08 12:09] VITALS: BP 119/59; PULSE 66
--- NOTE | 2025-01-08 12:13 | WPDHPUPDATE1 ---
History and Physical Update Update Date/Time: 01/08/25 12:13 History and Physical has been reviewed, including an updated exam of the patient. There are NO changes in the patient's condition. Risks, benefits, and alternatives have been discussed and questions answered. Patient agrees to proceed with procedure.
--- NOTE | 2025-01-08 12:33 | S_PTH ---
PATIENT: Malathi Lay LOC: [facility] U#:[id number] AGE/SX: 59/F ROOM: RE01/08/[address]: Donovan Quinones MD : 1965 BED: DIS: 01/08/2025 SPEC #: [id number] RECD: 01/08/25 13:12 STATUS: TUYET REQ #: [id number] JUAN JOSE: 01/08/25 12:[address]: Donovan Quinones DEPT: [facility] Surgical RECD BY: Yolanda Mckeon ENTERED: 01/08/25 13:12 SP TYPE: Surgical OTHR DR: Jessy Vásquez Tissues: A - Endometrial Curettings Procedures: Hematoxylin and Eosin Stain Gross and Microscopic Level 4
[2025-01-08 12:39] VITALS: BP 107/54; PULSE 75; RESP 14; O2SAT 100
--- NOTE | 2025-01-08 12:40 | W.PM.PROC2 ---
Procedure Note - Detailed Date of Procedure 01/08/25 Pre-op Diagnosis post menopausal bleeding Post-op Diagnosis Same Procedure Performed Hysteroscopy D&C with polypectomy Surgeon Donovan Quinones MD Anesthesia MAC Indications abnormal uterine bleeding Findings Moderate-sized endometrial polyp, atrophic endometrium with no lesions Description of Procedure the patient was taken the operating room. She was prepped and draped in the dorsal lithotomy position after induction of mac anesthesia. A speculum was placed in the vagina. The cervix was grasped with a tenaculum. The cervix was dilated about 1 cm. The hysteroscope was inserted. The intrauterine cavity and endocervix were evaluated. Hysteroscope was withdrawn. A medium-size curette was used to curettage all the surfaces were within the endometrial cavity. the sample was collected on Telfa and sent to pathology. Polypectomy was performed with small rotational blade. The hysteroscope was reinserted and the above findings were noted. Patient tolerated the procedure well. The speculum and tenaculum were removed. She was taken recovery room in stable condition. Sponge lap and needle counts were correct x2. Estimated Blood Loss 10 Drains No Packing No Pathology Yes Complications No immediate complications Condition Stable Disposition PACU
[2025-01-08 13:05] VITALS: BP 135/68; PULSE 54; RESP 16
[2025-01-08 13:35] VITALS: BP 138/63; PULSE 56; RESP 16
== END 2025-01-08 13:49 | disposition home or self-care (01) ==
PROVIDERS: PCP Nurse Practitioner; Visit Provider Obstetrics & Gynecology
PROC: 0U5B8ZZ Destruction of Endometrium, Via Natural or Artificial Opening Endoscopic (ICD-10-PCS; CPT 58563; principal; 2025-01-08 12:00)
DX: N95.0 Postmenopausal bleeding (principal); N84.0 Polyp of corpus uteri
CPT/HCPCS: 58558; 88305; A9270; J2003; J2250; J2704; J3010; J7120